=== PATIENT | female | born 1945 | race Caucasian/White ===

== ENCOUNTER → 2016-07-19 | Outpatient (CLI) | payer OTHER | END | disposition home or self-care (01) | LOC: C.CPL 11:34 | PROVIDERS: ATTEND Orthopaedic Surgery Sports Medicine | DX: S83.242A Other tear of medial meniscus, current injury, left knee, initial encounter (principal); X58.XXXA Exposure to other specified factors, initial encounter ==

== ENCOUNTER → 2017-01-10 | Outpatient (CLI) | payer OTHER ==
--- NOTE | 2017-01-10 13:29 | MAMMOGRAPHY REPORT ---
BILATERAL DIGITAL DIAGNOSTIC MAMMOGRAM TOMOSYNTHESIS WITH CAD: 01/10/2017 CLINICAL HISTORY: 71-year-old woman with a personal history of in situ carcinoma of the right breast diagnosed in 2006. She presents for bilateral mammography. No new lump, focal pain or nipple discha rge. TECHNIQUE: Bilateral breast tomosynthesis in addition to standard 2D mammography was performed. Curre nt study was also evaluated with a Computer Aided Detection (CAD) system. COMPARISON: Comparison is made to exams dated: 01/08/2016 mammogram, 01/06/2015 mammogram, 12/24/2013 m ammogram, 11/06/2012 mammogram, 11/03/2011 mammogram, and 10/25/2010 mammogram. BREAST COMPOSITION: There are scattered areas of fibroglandular density in both breasts. FINDINGS: There is expected architectural distortion in the lower outer posterior right breast, at th e site of prior lumpectomy. A linear scar marker overlies the lower outer quadrant of the right tee st. There are benign rim calcifications in the right breast, most numerous in the lower inner quadra nt. A few benign-appearing calcifications are also identified in the left breast. No suspicious mas s, architectural distortion or cluster of suspicious microcalcifications is seen. IMPRESSION: ACR BI-RADS CATEGORY 2: BENIGN There is no mammographic evidence of malignancy bilaterally. Expected postsurgical changes in the ri ght breast. Bilateral mammography is recommended in one year, and consider remaining a diagnostic pa tient given the personal history of right breast cancer and family history of breast cancer, in case any additional spot magnification views are needed. The patient has been verbally notified of the re sults. Approximately 10% of breast cancers are not detected with mammography. A negative mammographic report should not delay biopsy if a clinically suggestive mass is present. Rima Mistry M.D. ay/:01/10/2017 12:25:39 [employer] Technician: Bere ELMORE)(Annetta), [facility] letter sent: Normal 1/2 BI-RADS Code: ACR BI-RADS Category 2: Benign
== END | disposition home or self-care (01) ==
LOC: C.MAMM 10:44
PROVIDERS: ATTEND Internal Medicine
DX: Z85.3 Personal history of malignant neoplasm of breast (principal)

== ENCOUNTER → 2017-03-21 | Outpatient (CLI) | payer OTHER ==
[2017-03-21 10:51] LABS: BASO % 0.3 %; BASO ABS # 0.02 K/uL (0-0.2); COMPLETE YES; EOS % 1.1 %; HEMATOCRIT 40.9 % (37-47); IG% 0.2 %; LYMPH % 36.1 %; LYMPH ABS # 2.33 K/uL (1.2-3.4); MEAN CELL VOLUME 91.9 fL (80-100); MEAN CORPUSCULAR HEMOGLOBIN 31.5 pg (25-34); MEAN CORPUSCULAR HGB CONC 34.2 g/dl (32-36); MEAN PLATELET VOLUME 9.5 fL (7.4-10.4); MONO % 9.5 %; NEUT % 52.8 %; PLATELET COUNT 171 K/uL (130-400); RED BLOOD COUNT 4.45 M/uL (4.2-5.4); WHITE BLOOD COUNT 6.45 K/uL (4.8-10.8)
[2017-03-21 11:03] LABS: ALT/SGPT 24 U/L (12-78); BLOOD UREA NITROGEN 19 mg/dl (7-18); BUN/CREATININE RATIO 25.7 (10-20); CALCIUM 9.4 mg/dl (8.5-10.1); CARBON DIOXIDE 32 mmol/L (21-32); CHLORIDE 104 mmol/L (98-107); CHOLESTEROL 231 mg/dl (0-200); CREATININE 0.72 mg/dl (0.60-1.20); GLUCOSE 92 mg/dl (70-99); POTASSIUM 4.2 mmol/L (3.5-5.1); SODIUM 139 mmol/L (136-145); TRIGLYCERIDES 84 mg/dl (0-150); VERY LOW DENSITY LIPOPROT CALC 17 mg/dl
[2017-03-21 11:13] LABS: ALB/GLOB RATIO 1.1 (0.9-2); ALKALINE PHOSPHATASE 71 U/L (45-117); AST/SGOT 25 U/L (15-37); CHOLESTEROL/HDL RATIO 2.4; HDL CHOLESTEROL 98 mg/dl; LDL CHOLESTEROL CALCULATED 116 mg/dl
== END | disposition home or self-care (01) ==
LOC: C.LABBC 07:13
PROVIDERS: ATTEND Internal Medicine
DX: H81.10 Benign paroxysmal vertigo, unspecified ear (principal)

== ENCOUNTER → 2017-05-09 | Outpatient (CLI) | payer OTHER | END | disposition home or self-care (01) | LOC: C.LABBC 08:44 | PROVIDERS: ATTEND Internal Medicine | DX: E03.9 Hypothyroidism, unspecified (principal) ==

== ENCOUNTER → 2018-02-23 | Outpatient (CLI) | payer OTHER ==
[~2018-02-23] MED LIST: ATOR-22 PO; CHOL100010 PO; LEVO25TA5 PO; MECL-91 PO; MELO-83 PO; OMEG10007 PO
== END | disposition home or self-care (01) ==
LOC: C.LAB 13:29
PROVIDERS: ATTEND Physician Assistant Medical
DX: E78.5 Hyperlipidemia, unspecified (principal); E03.9 Hypothyroidism, unspecified

== ENCOUNTER → 2018-02-23 | Outpatient (CLI) | payer OTHER ==
--- NOTE | 2018-02-23 14:27 | DIAGNOSTIC IMAGING REPORT ---
CHEST 2 VIEWS ROUTINE CLINICAL HISTORY: 72 years-old Female presenting with preoperative assessment. TECHNIQUE: PA and lateral views of the chest were obtained. COMPARISON: None. FINDINGS: Cardiomediastinal silhouette normal. Lungs and pleural spaces clear. Osseous structures normal. Upper abdomen normal. IMPRESSION: 1. No acute cardiopulmonary disease. Electronically signed by: Yosef Kurtz M.D. 02/23/2018 2:26 PM Dictated Date/Time: 02/23/2018 2:24 PM
[2018-02-23 14:53] LABS: ALBUMIN 3.3 gm/dl (3.4-5.0); BLOOD UREA NITROGEN 21 mg/dl (7-18); CARBON DIOXIDE 29 mmol/L (21-32); CREATININE 0.75 mg/dl (0.60-1.20); GLUCOSE 133 mg/dl (70-99); POTASSIUM 3.9 mmol/L (3.5-5.1); SODIUM 139 mmol/L (136-145)
[2018-02-23 15:44] LABS: BASO % 0.2 %; BASO ABS # 0.01 K/uL (0-0.2); EOS % 0.5 %; EOS ABS # 0.03 K/uL (0-0.5); HEMATOCRIT 38.6 % (37-47); HEMOGLOBIN 12.9 g/dL (12.0-16.0); IG# 0.03 K/uL (0.00-0.02); LYMPH % 35.9 %; LYMPH ABS # 2.16 K/uL (1.2-3.4); MEAN CELL VOLUME 92.8 fL (80-100); MEAN CORPUSCULAR HGB CONC 33.4 g/dl (32-36); MEAN PLATELET VOLUME 9.5 fL (7.4-10.4); MONO % 6.5 %; MONO ABS # 0.39 K/uL (0.11-0.59); NEUT % 56.4 %; PLATELET COUNT 170 K/uL (130-400); RED CELL DISTRIBUTION WIDTH CV 13.7 % (11.5-14.5); RED CELL DISTRIBUTION WIDTH SD 46.3 fL (36.4-46.3); WHITE BLOOD COUNT 6.02 K/uL (4.8-10.8)
[2018-02-23 15:52] LABS: PTT PATIENT 27.1 SECONDS (21.0-31.0)
[2018-02-24 06:59] LABS: HEMOGLOBIN A1C 5.8 % (4.5-5.6)
== END | disposition home or self-care (01) ==
LOC: C.CPL 12:58
PROVIDERS: ATTEND Orthopaedic Surgery Sports Medicine
DX: Z01.810 Encounter for preprocedural cardiovascular examination (principal); Z01.811 Encounter for preprocedural respiratory examination; Z01.812 Encounter for preprocedural laboratory examination

== ENCOUNTER → 2018-02-26 | Outpatient (CLI) | payer OTHER ==
--- NOTE | 2018-02-26 10:59 | DIAGNOSTIC IMAGING REPORT ---
CAROTID DOPPLER NECK ART HISTORY: Carotid bruit. R09.89 Bruit of left carotid [id number] COMPARISON: None. TECHNIQUE: Real-time, grayscale, and color Doppler sonography of the carotid arteries was performed. Imaging reviewed in the transverse and longitudinal planes. All measurements were calculated based on NASCET criteria. FINDINGS: Antegrade flow is seen in the bilateral vertebral arteries. The brachial pressures are hemodynamically similar. The peak systolic velocity within the right ICA is 73. The right systolic ratio is 0.8. The peak systolic velocity within the left ICA is 66. The left systolic ratio is 0.8. IMPRESSION: No hemodynamically significant stenosis seen within the carotid arteries. The above report was generated using voice recognition software. It may contain grammatical, syntax or spelling errors. Electronically signed by: Juan Manuel Sanders M.D. 02/26/2018 10:58 AM Dictated Date/Time: 02/26/2018 10:57 AM
== END | disposition home or self-care (01) ==
LOC: C.ULTRBC 10:28
PROVIDERS: ATTEND Physician Assistant Medical
DX: R09.89 Other specified symptoms and signs involving the circulatory and respiratory systems (principal)

== ENCOUNTER 2025-04-16 08:12 | Observation (INO) ==
--- NOTE | 2025-03-18 09:20 | PAT Medication Instructions ---
Medication Instructions Date of Service March 18, 2025 Home Medications Medication Instructions Recorded escitalopram oxalate 10 mg tablet 10 mg PO HS #90 tabs 05/23/24 levothyroxine 25 mcg tablet 25 mcg PO QAM #90 tabs 05/23/24 rivaroxaban 20 mg tablet (Xarelto) 20 mg PO HS #90 tabs 07/22/24 atorvastatin 40 mg tablet 40 mg PO HS #90 tabs 08/02/24 ezetimibe 10 mg tablet (Zetia) 10 mg PO HS #90 tabs 08/02/24 acetaminophen 650 mg tablet,extended release (Tylenol 8 Hour) 650 mg PO BID cholecalciferol (vitamin D3) 50 mcg (2,000 unit) capsule 50 mcg PO DAILY coenzyme Q10 100 mg capsule (Co Q-10) 50 mg PO DAILY escitalopram oxalate 10 mg tablet 10 mg PO HS levothyroxine 25 mcg tablet 25 mcg PO QAM rivaroxaban 20 mg tablet (Xarelto) 20 mg PO HS atorvastatin 40 mg tablet 40 mg PO HS ezetimibe 10 mg tablet (Zetia) 10 mg PO HS alendronate 70 mg tablet (Fosamax) 70 mg PO WK afhqapue-bcc-umcuec 5 mg-zeaxanth 1 mg-bilberry 7.5 mg-herbal capsule (Macular Health Formula) 1 cap PO DAILY sulfamethoxazole 800 mg-trimethoprim 160 mg tablet 1 tab PO BID Continue as directed sulfamethoxazole 800 mg-trimethoprim 160 mg tablet 1 tab PO BID ASK your prescriber and surgeon rivaroxaban 20 mg tablet (Xarelto) 20 mg PO HS (From anesthesia perspective, rivaroxaban/Xarelto needs to be stopped 72 hours/3 days before surgery. Please check if okay with doctor that prescribes this to you) STOP taking 2 weeks before surgery (or as soon as possible if surgery is within 2 weeks) coenzyme Q10 100 mg capsule (Co Q-10) 50 mg PO DAILY gwqmnxfa-[id number] 5 mg-zeaxanth 1 mg-bilberry 7.5 mg-herbal capsule (Macular Health Formula) 1 cap PO DAILY DO NOT take the morning of surgery cholecalciferol (vitamin D3) 50 mcg (2,000 unit) capsule 50 mcg PO DAILY alendronate 70 mg tablet (Fosamax) 70 mg PO WK Take morning of surgery With a small sip of water, OTHERWISE NOTHING TO EAT OR DRINK AFTER MIDNIGHT: acetaminophen 650 mg tablet,extended release (Tylenol 8 Hour) 650 mg PO BID levothyroxine 25 mcg tablet 25 mcg PO QAM Take evening before surgery acetaminophen 650 mg tablet,extended release (Tylenol 8 Hour) 650 mg PO BID escitalopram oxalate 10 mg tablet 10 mg PO HS atorvastatin 40 mg tablet 40 mg PO HS ezetimibe 10 mg tablet (Zetia) 10 mg PO HS Other Notes If you have any questions please call us at [phone] or [phone] or [phone] or [phone]
--- NOTE | 2025-03-19 12:56 | Anesthesiology Consultation ---
Date of Service March 19, 2025 Assessment & Plan (1) Encounter for pre-operative examination: - Check BSG DOS - Infectious disease screening: Per assessment on 03/19/25- No known recent infectious disease contacts or current infectious disease symptoms. - Outpatient joint assessment: Pt currently scheduled for inpatient pathway. If surgeon requests review for outpatient joint pathway, patient is not recommended candidate for outpatient joint program from anesthesia standpoint based on available information. - Xarelto instructions: patient made aware that for neuraxial anesthesia, Xarelto/Rivaroxaban needs to be held 72 hours prior to surgery. Patient voiced understanding/will check if okay with prescriber. - [facility] visit (03/19/25): " Patient is planning to leave for [place] on 03/22/2025 and right TKA scheduled for 04/16/[address] Tipton. She has no new complaints today.." "Wound is improved; nearly healed. Topical Xylocaine applied to the wound. With the patient's permission, the wound was debrided of eschar using a curette. No bleeding occurred, and wound was nearly healed underneath. Patient tolerated the procedure well. This represents a nonexcisional debridement of less than 20 cm; 1.10 cm total. Wound will be dressed with plain PolyMem today, and patient will be fitted for compression stocking. She will transition into this in preparation for her trip to [place] on 03/22/2025.. Evidence of chronic venous stasis changes with lymphedema. Patient did undergo venous reflux study on 03/06/2025. Right GSV endovenous ablation could be considered. She is scheduled for consultation with Sonia Arreola PA-C on 05/29/2025. Patient fitted for compression stockings today by orthotics." - Acceptable risk for surgery pending surgeon-ordered cardiology ([facility], appt 04/09) and PCP ([facility], appt 04/10) preop evaluations. Chart Review Chart Review: Patient NOT seen in Pre Admission Testing History Surgery Operation Date: 04/16/25 12:35 Proposed Procedures p Right Total Knee Arthroplasty - Ryder Tipton MD Height/Weight Height: 5 ft 7 in Weight: 81.4 kg Allergies Allergy/AdvReac Type Severity Reaction Status Date / Time Latex, Natural Rubber Allergy Severe Rash Verified 03/19/25 15:00 amoxicillin [From Augmentin] Allergy Cold sores Verified 03/19/25 15:00 clavulanic acid Allergy Cold sores Verified 03/19/25 15:00 [From Augmentin] animal dander AdvReac Mild Verified 03/19/25 15:00 oxycodone AdvReac Mild Hives Verified 03/19/25 15:00 adhesive tape AdvReac Unknown Rash Verified 03/19/25 15:00 celecoxib [From Celebrex] AdvReac Unknown See comment Unverified 03/19/25 15:00 Medications Home Medications Medication Instructions Recorded Confirmed Last Taken acetaminophen 650 mg 650 mg PO BID 07/23/20 03/19/25 12/13/24 tablet,extended release (Tylenol 8 Hour) cholecalciferol (vitamin D3) 50 50 mcg PO DAILY 07/23/20 03/19/25 12/12/24 mcg (2,000 unit) capsule coenzyme Q10 100 mg capsule (Co 50 mg PO DAILY 05/15/23 03/19/25 12/12/24 Q-10) escitalopram oxalate 10 mg tablet 10 mg PO HS #90 tabs 05/23/24 03/19/25 12/12/24 levothyroxine 25 mcg tablet 25 mcg PO QAM #90 tabs 05/23/24 03/19/25 12/13/24 rivaroxaban 20 mg tablet (Xarelto) 20 mg PO HS #90 tabs 07/22/24 03/19/25 atorvastatin 40 mg tablet 40 mg PO HS #90 tabs 08/02/24 03/19/25 12/12/24 ezetimibe 10 mg tablet (Zetia) 10 mg PO HS #90 tabs 08/02/24 03/19/25 12/12/24 alendronate 70 mg tablet (Fosamax) 70 mg PO WK 12/13/24 03/19/25 12/12/24 etruqcfu-ykz-pcktmv 5 mg-zeaxanth 1 cap PO DAILY 12/13/24 03/19/25 12/12/24 1 mg-bilberry 7.5 mg-herbal capsule ([employer] Formula) Past Medical History Medical History Anxiety Arthritis of right shoulder region Atherosclerosis of aorta Atrial fibrillation Taking Xarelto Previously on beta yocasta, d/c'd due to nausea Follows with [facility] Cancer Right breast cancer (2006) s/p lumpectomy/tamoxifen Cervicalgia Chronic back pain Chronic venous insufficiency History of COVID-19 (2022) Symptoms resolved History of hypotension Chronic History of kidney stones Passed on own Hyperlipidemia Hypothyroidism Lumbar spinal stenosis Mitral regurgitation Follows with [facility] Osteoarthritis of left knee Osteopenia Traumatic open wound of right lower leg with delayed healing RLE "hematoma", healing Following w/[facility] Type 2 diabetes mellitus Per records Patient denies Exercise / Class Metabolic Activity III < 4 Walking/Shop/Light housework Past Family History Family History Mother Family history of malignant neoplasm of breast Diabetes Brother Diabetes Depression Father Cardiac disorder Myocardial infarction Grandmother Colon cancer Past Surgical History Surgical History H/O wisdom tooth extraction History of arthroscopy Left knee History of colonoscopy History of left knee replacement History of Mohs micrographic surgery for skin cancer History of open reduction and internal fixation (ORIF) procedure Right ankle History of tonsillectomy Hx of lumpectomy Right Hx of surgical procedure Platelets injected into left ankle Past Anesthesia History No Hx of Anesthesia Complications and No Family Hx of Anesthesia Complications History of PONV No Hx of PONV and Hx of Motion Sickness (Remote hx) Social History Smoking Status: Never smoker Do You Dip or Chew Tobacco: No Hx Alcohol Use: Yes Alcohol type: wine alcohol intake frequency: 0-2 drinks per day (1 glass wine/day) Hx Substance Use: No substance use type: does not use Review of Systems Patient denies chest pain, shortness of breath, fever, chills, cough, wheezing, palpitations. Physical Exam Vital Signs BP 91/60 > Chronic hypotension per patient, asymptomatic P 90 TEMP 98.3 SP02 95%RA RESP 16 Physical Full cervical extension range of motion. Full TMJ range of motion. TMD > 3.5 finger breaths Mallampati Score III Dentition: intact, several crowns Lungs: clear throughout to auscultation Cardiac: regular rate, irregularly irregular rhythm Spine: normal Carotid arteries: faint left carotid bruit Extremities: RLE compression stocking, LLE boot Lab Results Anesthesia Preop Results Results Anesthesia Widget: WBC 6.56 K/ul (4.8-10.8) 03/19/25 Hgb 13.1 g/dl (12.0-16.0) 03/19/25 Hct 39.2 % (37.0-47.0) 03/19/25 Plt 166 K/uL (130-400) 03/19/25 Na 138 mmol/L (136-145) 03/19/25 K 4.2 mmol/L (3.5-5.1) 03/19/25 Cl 103 mmol/L (98-107) 03/19/25 CO2 30 mmol/L (21-32) 03/19/25 BUN 27 mg/dl (6-23) H 03/19/25 Creat 0.89 mg/dl (0.6-1.2) 03/19/25 Glucose Level 151 mg/dl (70-99(Fasting)) H 03/19/25 PT 11.0 Seconds (9.0-12.0) 03/19/25 PTT 38 Seconds (21-31) H 03/19/25 INR 1.0 (0.9-1.1) 03/19/25 Urine Color Yellow 03/19/25 Urine Appearance Clear (Clear) 03/19/25 Urine pH 5.5 (4.5-7.5) 03/19/25 Urine Specific Gilbert 1.029 (1.000-1.030) 03/19/25 Urine Protein Negative (Negative) 03/19/25 Urine Glucose (UA) Negative (Negative) 03/19/25 Urine Ketones Trace (Negative) H 03/19/25 Urine Blood Negative (Negative) 03/19/25 Urine Nitrite Negative (Negative) 03/19/25 Urine Bilirubin Negative (Negative) 03/19/25 Urine Urobilinogen Negative (Negative) 03/19/25 Urine Leukocyte Esterase Negative (Negative) 03/19/25 Blood Type A Positive 03/19/25 Antibody Screen NEGATIVE 03/19/25 Testing Laboratory Results Elevated PTT- patient taking Xarelto (will be holding preoperatively) HGBA1C (07/01/24): 6.7% Electrocardiogram Date: 03/19/25 A. fib at 76bpm. Chest X-Ray Date: 03/19/25 Findings: + NAD Echocardiogram Date: 11/10/23 EF 65-70%. Mild LAD. Mild AR. No RWMA. Diastolic function indeterminate. Other Testing Carotid doppler Date: 05/02/2022 Indication: Left carotid bruit <50% R/L ICA stenosis. B/L vertebral ateries with antegrade flow.
--- NOTE | 2025-04-12 10:57 | History & Physical Report ---
Date of Service April 12, 2025 History of Present Illness Primary Care Provider: Dinorah Rosenthal DO Patient denies headaches, sweats, fevers, chills, double vision, blurred vision, cough, sore throat, dysphagia, chest pain, sob, wheezing, n/v/d/c, numbness, tingling, fatigue, urinary symptoms, mood disorders. ROS positive for [] Allergies Allergy/AdvReac Type Severity Reaction Status Date / Time Latex, Natural Rubber Allergy Severe Rash Verified 04/11/25 08:56 amoxicillin [From Augmentin] Allergy Cold sores Verified 04/11/25 08:56 clavulanic acid Allergy Cold sores Verified 04/11/25 08:56 [From Augmentin] animal dander AdvReac Mild Verified 04/11/25 08:56 oxycodone AdvReac Mild Hives Verified 04/11/25 08:56 adhesive tape AdvReac Unknown Rash Verified 04/11/25 08:56 celecoxib [From Celebrex] AdvReac Unknown See comment Unverified 04/11/25 08:56 Home Medications Medication Instructions Recorded Confirmed Type acetaminophen 650 mg 650 mg PO BID 07/23/20 04/11/25 History tablet,extended release (Tylenol 8 Hour) cholecalciferol (vitamin D3) 50 50 mcg PO DAILY 07/23/20 04/11/25 History mcg (2,000 unit) capsule coenzyme Q10 100 mg capsule (Co 50 mg PO DAILY 05/15/23 04/11/25 History Q-10) escitalopram oxalate 10 mg tablet 10 mg PO HS #90 tabs 05/23/24 04/11/25 Rx levothyroxine 25 mcg tablet 25 mcg PO QAM #90 tabs 05/23/24 04/11/25 Rx rivaroxaban 20 mg tablet (Xarelto) 20 mg PO HS #90 tabs 07/22/24 04/11/25 Rx atorvastatin 40 mg tablet 40 mg PO HS #90 tabs 08/02/24 04/11/25 Rx ezetimibe 10 mg tablet (Zetia) 10 mg PO HS #90 tabs 08/02/24 04/11/25 Rx alendronate 70 mg tablet (Fosamax) 70 mg PO WK 12/13/24 04/11/25 History boixtinc-exd-jreldi 5 mg-zeaxanth 1 cap PO DAILY 12/13/24 04/11/25 History 1 mg-bilberry 7.5 mg-herbal capsule (Macular Health Formula) Past Med/Surg History Problem List (Updated 04/11/25 @ 09:33 by YANIRA Kohler) Chronic venous insufficiency of lower extremity (Chronic) Traumatic open wound of left lower leg with delayed healing (Acute) Type 2 diabetes mellitus Abnormal finding present on diagnostic imaging of uterus Insomnia Osteopenia after menopause Mitral regurgitation Atrial fibrillation Cervical spondylosis Calcification of abdominal aorta (Chronic) Atherosclerosis of aorta (Chronic) History of cancer of right breast Vitamin D deficiency Continue home vitamin D supplement. Hypothyroid Continue home levothyroxine 25 mcg PO daily Hyperlipemia Continue home statin Encounter for pre-operative examination Medical History Type 2 diabetes mellitus Traumatic open wound of right lower leg with delayed healing Osteopenia Chronic back pain Atherosclerosis of aorta History of COVID-19 (2022) Mitral regurgitation Chronic venous insufficiency Arthritis of right shoulder region Lumbar spinal stenosis Osteoarthritis of left knee Anxiety Atrial fibrillation History of kidney stones Cervicalgia Hypothyroidism Cancer Hyperlipidemia History of hypotension Surgical History History of left knee replacement H/O wisdom tooth extraction History of Mohs micrographic surgery for skin cancer Hx of surgical procedure Hx of lumpectomy History of open reduction and internal fixation (ORIF) procedure History of arthroscopy History of colonoscopy History of tonsillectomy Family History Mother Family history of malignant neoplasm of breast Diabetes Brother Diabetes Depression Father Cardiac disorder Myocardial infarction Grandmother Colon cancer Social History Smoking Status: Never smoker Second Hand Exposure: No; Do You Dip or Chew Tobacco: No; Hx Alcohol Use: Yes Alcohol type: wine Alcohol Intake Frequency: 2-3 x/Week Hx Substance Use: No Preferred Language: Cymro Communication Ability: Effective Visual Impairment: Limited Hearing Ability: Normal 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
--- NOTE | 2025-04-12 11:08 | History & Physical Report ---
Date of Service April 12, 2025 Assessment & Plan (1) Osteoarthritis of right knee: Plan: End-stage osteoarthritis right knee presents for right knee replacement. Patient presents for [employer] knee replacement with MRI generated PSI guide. Osteoarthritis type: primary Qualified Code(s): M17.11 - Unilateral primary osteoarthritis, right knee (2) Chronic venous insufficiency of lower extremity: History of Present Illness Chief Complaint: Chronic right knee pain due to osteoarthritis Primary Care Provider: Dinorah Rosenthal DO 79-year-old female with chronic right knee pain failed conservative management with recurrent pain and swelling not relieved by injection therapy. Patient denies headaches, sweats, fevers, chills, double vision, blurred vision, cough, sore throat, dysphagia, chest pain, sob, wheezing, n/v/d/c, numbness, tingling, fatigue, urinary symptoms, mood disorders. ROS positive for atrial fib irregular heartbeat, some bruising related to Xarelto, osteopenia bones, lower back pain occasionally. Allergies Allergy/AdvReac Type Severity Reaction Status Date / Time Latex, Natural Rubber Allergy Severe Rash Verified 04/11/25 08:56 amoxicillin [From Augmentin] Allergy Cold sores Verified 04/11/25 08:56 clavulanic acid Allergy Cold sores Verified 04/11/25 08:56 [From Augmentin] animal dander AdvReac Mild Verified 04/11/25 08:56 oxycodone AdvReac Mild Hives Verified 04/11/25 08:56 adhesive tape AdvReac Unknown Rash Verified 04/11/25 08:56 celecoxib [From Celebrex] AdvReac Unknown See comment Unverified 04/11/25 08:56 Home Medications Medication Instructions Recorded Confirmed Type acetaminophen 650 mg 650 mg PO BID 07/23/20 04/11/25 History tablet,extended release (Tylenol 8 Hour) cholecalciferol (vitamin D3) 50 50 mcg PO DAILY 07/23/20 04/11/25 History mcg (2,000 unit) capsule coenzyme Q10 100 mg capsule (Co 50 mg PO DAILY 05/15/23 04/11/25 History Q-10) escitalopram oxalate 10 mg tablet 10 mg PO HS #90 tabs 05/23/24 04/11/25 Rx levothyroxine 25 mcg tablet 25 mcg PO QAM #90 tabs 05/23/24 04/11/25 Rx rivaroxaban 20 mg tablet (Xarelto) 20 mg PO HS #90 tabs 07/22/24 04/11/25 Rx atorvastatin 40 mg tablet 40 mg PO HS #90 tabs 08/02/24 04/11/25 Rx ezetimibe 10 mg tablet (Zetia) 10 mg PO HS #90 tabs 08/02/24 04/11/25 Rx alendronate 70 mg tablet (Fosamax) 70 mg PO WK 12/13/24 04/11/25 History bjvprert-qky-mfvghc 5 mg-zeaxanth 1 cap PO DAILY 12/13/24 04/11/25 History 1 mg-bilberry 7.5 mg-herbal capsule ([employer] Formula) Past Med/Surg History Problem List (Updated 04/12/25 @ 11:07 by Ryder Tipton MD) Osteoarthritis of right knee Chronic venous insufficiency of lower extremity (Chronic) Traumatic open wound of left lower leg with delayed healing (Acute) Type 2 diabetes mellitus Abnormal finding present on diagnostic imaging of uterus Insomnia Osteopenia after menopause Mitral regurgitation Atrial fibrillation Cervical spondylosis Calcification of abdominal aorta (Chronic) Atherosclerosis of aorta (Chronic) History of cancer of right breast Vitamin D deficiency Continue home vitamin D supplement. Hypothyroid Continue home levothyroxine 25 mcg PO daily Hyperlipemia Continue home statin Encounter for pre-operative examination Medical History Type 2 diabetes mellitus Per records Patient denies Traumatic open wound of right lower leg with delayed healing RLE "hematoma", healing Following [facility] Osteopenia Chronic back pain Atherosclerosis of aorta History of COVID-19 (2022) Symptoms resolved Mitral regurgitation Follows with [facility] Chronic venous insufficiency Arthritis of right shoulder region Lumbar spinal stenosis Osteoarthritis of left knee Anxiety Atrial fibrillation Taking Xarelto Previously on beta yocasta, d/c'd due to nausea Follows with [facility] History of kidney stones Passed on own Cervicalgia Hypothyroidism Cancer Right breast cancer (2006) s/p lumpectomy/tamoxifen Hyperlipidemia History of hypotension Chronic Surgical History History of left knee replacement H/O wisdom tooth extraction History of Mohs micrographic surgery for skin cancer Hx of surgical procedure Platelets injected into left ankle Hx of lumpectomy Right History of open reduction and internal fixation (ORIF) procedure Right ankle History of arthroscopy Left knee History of colonoscopy History of tonsillectomy Family History Mother Family history of malignant neoplasm of breast Diabetes Brother Diabetes Depression Father Cardiac disorder Myocardial infarction Grandmother Colon cancer Social History Smoking Status: Never smoker Second Hand Exposure: No; Do You Dip or Chew Tobacco: No; Hx Alcohol Use: Yes Alcohol type: wine Alcohol Intake Frequency: 2-3 x/Week Hx Substance Use: No Preferred Language: Kyrgyz Communication Ability: Effective Visual Impairment: Limited Hearing Ability: Normal Contact Officer Required: No Beliefs That Will Affect Care: None marital status: Current Living Situation: Alone current occupational status: retired Feels Safe at Home: Yes Childhood Exposure to Second-Hand Smoke: Yes Diet: regular caffeine: Yes (occasionally) Dental Care, Regularly: Yes Physical Activity Frequency: Daily Seatbelt Use: always Sunscreen Use: Yes Assistive Devices: Glasses Review of Systems All systems reviewed & are unremarkable except as noted in HPI & below Physical Exam Constitutional: WD/WN, vitals as above Respiratory: normal respiratory effort; no respiratory distress Cardiovascular: Rate/Rhythm: regular rate and regular rhythm Musculoskeletal: Bilateral knee effusions with right greater than left with valgus knee on right neutral alignment on left moderate swelling right leg with crepitation patellofemoral and lateral compartment 0 through 125 degrees range of motion normal strength and chronic venous stasis dermatitis bilaterally good arterial circulation. Skin: no rashes, warm and dry Neurologic: normal touch/pain/proprioception Psychiatric: A+Ox3, euthymic affect Results & Data Diagnostic Findings Advanced right knee osteoarthritis primarily lateral compartment.
[~2025-04-16 08:12] MED LIST changes: -ATOR-22 PO; +BUPIVACAINE 0.25% PF 30 ML VIAL ONE; +BUPIVACAINE 0.5 % 5 MG/1 ML PF 10ML VIAL ONE; -CHOL100010 PO; +DEXAMETHASONE SOD INJ 4 MG/ML VIAL ONE; +EPINEPHrine INJ 1 MG/ML AMP ONE; -LEVO25TA5 PO; -MECL-91 PO; -MELO-83 PO; +MIDAZOLAM HCL 1 MG/ML 2ML VIAL ONE; -OMEG10007 PO; +PROPOFOL IV EMULSION 10 MG/ML 100 ML VIAL IV ONE
[2025-04-16] MEDS: ACETAMINOPHEN 500 MG TAB PO SCH ×2 (08:57→15:47)
[2025-04-16] MEDS: LR 500ML BOLUS, THEN 15ML/HR IV SCH (08:57)
[2025-04-16] MEDS: LR 60ML/HR IV SCH (08:58)
[2025-04-16] MEDS: dexAMETHasone**PF** 10 MG/ML VIAL IV SCH (08:59)
[2025-04-16] MEDS: GABAPENTIN 300 MG CAP PO SCH (08:59)
[2025-04-16] MEDS: FAMOTIDINE 20 MG TAB PO SCH (08:59)
[2025-04-16] MEDS: METOCLOPRAMIDE HCL 10 MG TABLET PO SCH (09:01)
[2025-04-16] MEDS ORDERED: PROMETHAZINE HCL 6.25 MG in SODIUM CHLORIDE 0.9% 50 ML IV PRN (09:26)
[2025-04-16] MEDS ORDERED: ONDANSETRON INJ 2 MG/ML 2 ML VIAL IV PRN ×2 (09:26→15:06)
[2025-04-16] MEDS ORDERED: ATROPINE SULFATE 0.1 MG/ML 10ML SYR IV PRN (09:26)
--- NOTE | 2025-04-16 10:08 | History & Physical Bridge Note ---
Date of Service April 16, 2025 History & Physical Bridge Note I have examined the patient, reviewed the History & Physical and in the interval since the performance of the History & Physical I have noted the following changes of clinical significance: no changes noted
[2025-04-16] MEDS: TRANEXAMIC ACID 1,000 MG **IV Pre-op IV SCH (10:12)
[2025-04-16] MEDS ORDERED: ONDANSETRON INJ 2 MG/ML 2 ML VIAL ONE (10:54)
[2025-04-16] MEDS ORDERED: LIDOCAINE 2% 2 ML VIAL/AMP(20MG/ML) INFIL ONE (10:54)
[2025-04-16] MEDS: ORTHO JOINT ANESTHETIC ONE (11:10)
[2025-04-16] MEDS: ROPIVACAINE 0.5% HCL/PF 246 MG, Ketorolac (*for OR use only*) 30 MG in SODIUM CHLORIDE ... INFIL SCH (12:14)
--- NOTE | 2025-04-16 13:00 | Operative Report ---
Post Operative Report Pre & Post Diagnosis Operation Date: 04/16/25 09:40 Pre-Op Diagnosis: Osteoarthritis of right knee Post-Op Diagnosis: Osteoarthritis of right knee I identified the patient and participated in the time-out.: Yes Procedure Operation Date: 04/16/25 09:40 Actual Procedures p Right Total Knee Arthroplasty(Right) - Ryder Tipton MD Surgeon Ryder Tipton MD Organizational Development Manager Leoncio MCFADDEN Estimated Blood Loss 5 Findings Consistent with Post-Op Diagnosis Specimens Bone cuts Drains 2 Hemovac Anesthesia Type MAC Spinal Regional Complications none Disposition Disposition: Recovery Room Indications 79-year-old female with chronic progressive osteoarthritis right knee now [id number] lateral compartment. Failed conservative management. History of success left knee replacement in the past. Description of Procedure The patient was taken to the operating room and anesthetized under spinal MAC regional block. Patient was placed supine on the the operating table. A pneumatic tourniquet was placed about the right upper thigh. The knee exam demonstrated valgus knee with moderately large knee effusion and patellofemoral crepitation and no instability and no pseudolaxity. The lower leg down to ankle had chronic venous stasis pigmentation changes but no open sores noted at all. The incisional area was totally clean and normal-appearing skin. The right leg was elevated exsanguinated with Esmarch bandage and the pneumatic tourniquet was raised to 325 millimeters mercury. A longitudinal incision was made across the anterior knee. Skin flaps were elevated. An incision was made into the medial retinaculum and extended up into the mid third of the quadriceps tendon and extended down to the tibial tubercle. Intra-articular findings demonstrated tricompartmental osteoarthritis. There was grade 3 close to grade 4 thinning on the medial femoral condyle and the lateral femoral condyle was clearly grade 4 [id number] osteoarthritis between the tibial plateau and the lateral femur. The cruciate ligaments were intact. Patella has grade III chondromalacia medial and lateral facets and trochlear groove. The knee was exposed by excising cruciate ligaments and menisci. The infrapatellar fat pad was resected. The fat pad over the anterior femur at the upper aspect of the articular surface was resected for placement of the component in that area. A subperiosteal peel lateral release was performed around the patella. The Ortiz [employer] Nephew journey 2.0 total knee arthroplasty system was utilized for the procedure. The custom femoral cutting guide was pinned in position. The distal femoral cut was made. The size 5, 5 in 1 cutting block was placed. The anterior posterior and chamfer cuts were made. The knee was extended and a free hand cut technique was performed to the patella. The patella width was measured and the width was reproduced using a 35 symmetrical patella component. The e xcess lateral facet was beveled off to prevent any impingement. 3 drill holes are made for the patella component pegs. The tibia was then subluxed. The custom tibial cutting block was pinned in position and the proximal tibial cut was made with the oscillating saw. Flexion and extension gaps were balanced. Lateral capsular and lateral IT band off of the tibia releases were required. The size 3 tibial trial was externally rotated in line with the tibial tubercle and pinned in position. The punch for the stem was used. The femoral trial was inserted and centered the notch cutting devices were used and the collet was placed. Tibial trials were used for the insert. The size 15 trial gave balanced ligaments through full range of motion. Patella tracking was assessed with range of motion. The patella tracked with slight lateral tracking with lateral tilt so I did do an extra-articular lateral release preserving the geniculate vessels and the synovium. Patella tracks centrally then. The trials were removed. The Orthomix anesthetic cocktail was injected per protocol. The cut bone surfaces and soft tissue were copiously irrigated with pulsatile lavage saline solution. The final components were cemented with Refobacin cement. The final components were Ortiz [employer] Nephew journey 2.0 size 5 right posterior stabilized femoral component, size 3 right tibial component, 15 mm posterior stabilized tibial polyethylene and a 35 mm symmetrical polyethylene patella. Xperience irrigation was placed over metal tray prior to polyethyle insertion. After the cement cured, the knee was then copiously irrigated with pulsatile lavage Xperience solution. 2 drains were brought out laterally connected to Hemovac. The quadriceps tendon and medial retinaculum were closed with interrupted [id number]-eg-[id number] sutures using #2 FiberWire in the area of the medial retinaculum and distal quadriceps tendon. Additional sutures were placed at the apex of the quadriceps tendon split proximally and at the level of the tibial polyethylene. A 0 strata fix running locking suture was placed from the superior quadriceps split down to the medial retinaculum inferior pole of the patella level. Below that level interrupted number#1 Vicryl sutures were used to repair the medial retinaculum. The knee was taken through full range of motion and repair was secure. Knee range of motion was 0 through 135 degrees. the subcutaneous tissues were closed with 2-0 Vicryl sutures. The skin was closed with 3 oh STRATAFIX and Prineo glue system. A Silverlon dressing was applied. The tourniquet was let down and the patient had good capillary refill to the extremity. The patient tolerated the procedure well. My physician butcher assistant BOGDAN Cobb participated as executive chef assistant and was integral part in all aspects of the procedure including prepping, draping, leg positioning, soft tissue retraction, instrument management and assisted in the closure , Silverlon application and will participate in postoperative care the patient. Im ordering collagen sheets as a primary dressing and bordered super absorbent for secondary dressings for the wound resulting from this surgery. Collagen is being utilized to encourage the growth of blood vessels and granulation tissue. The collagen will also speed up the wound healing process, increase skin tensile strength at the surgery site and lessen the chance of a wound dehiscence, help prevent infection, and reduce the appearance of scarring. The silicone secondary dressings will protect the wound and help keep it clean and minimize that chances for infection. I believe that this treatment protocol is medically necessary to help facilitate the best outcome possible for my patient. I attest to the content of the Intraoperative Record and any orders documented therein. Any exceptions are noted below.
--- NOTE | 2025-04-16 13:02 | Anesthesiology Progress Note ---
Date of Service April 16, 2025 Anesthesia Post Procedure Vital Signs Vital Signs: Temp Pulse Resp BP Pulse Ox O2 Del Method 04/16/25 08:41 36.6 C 81 18 151/78 H 97 Room Air Pain Intensity Back: Pain Intensity: 2 Transfer of Care Handoff Completed per policy Notes Mental Status: alert / awake / arousable Patient Amnestic to Procedure: Yes Nausea / Vomiting: adequately controlled Pain: adequately controlled Airway Patency, RR, SpO2: stable & adequate BP & HR: stable & adequate Hydration State: stable & adequate Neuraxial Anesthesia: was administered and sensory block is resolving Anesthetic Complications: no major complications apparent and Pt Satisfied with anesthetic care
--- NOTE | 2025-04-16 13:26 | XRay Report ---
XR knee RT 1 or 2V routine CLINICAL HISTORY: Surgical Post Op COMPARISON: 06/04/2024 FINDINGS: Right knee prosthesis shows no hardware complication. There is expected soft tissue gas. P ostoperative drain is present. IMPRESSION: Unremarkable postoperative exam. ACT 112: Negative or not required by law. Electronically signed by: Ronak Wing M.D. 04/16/2025 1:25 PM
--- NOTE | 2025-04-16 14:58 | Hospitalist Consultation ---
Date of Consultation April 16, 2025 Assessment & Plan (1) Osteoarthritis of right knee: (2) Atrial fibrillation: (3) Hypothyroid: (4) Hyperlipemia: (5) Type 2 diabetes mellitus: Plan This is an 79 year old female with past medical history of A fib, hyperlipidemia, breast cancer who presented to the hospital for an elective right total knee repair with Dr. Tipton on 04/16/2025. #OA of right knee s/p right total knee repair w/ Dr. Tipton 04/16 DVT prophylaxis, PT/OT, pain management, and Diet per primary team. Patient does report eye irritation in her left eye following surgery. - trial erythromycin ointment to see if this helps improve symptoms. Did not appear red Anticipate dc home 04/17. #A fib Per pt was in A fib prior to surgery this AM - asymptomatic resume Xarelto when able. Not on any rate controlling medications at this time. #Hypothyroidism Most recent TSH 06/2024 was WNL - recheck in AM Continue Levothyroxine #HLD - continue statin + zetia #Anxiety/depression - continue Lexapro #T2 DM Currently diet controlled. A1c 03/2025: 6.3% Continue to follow up w/ PCP for continued monitoring. DVT prophylaxis: per primary team, resume Xarelto when able. Code: full Consultation discussed w/ Dr. Wild at time of encounter. History of Present Illness Reason for Consultation: right total knee Attending Physician: Ryder Tipton MD History of Present Illness This is an 79 year old female with past medical history of A fib, hyperlipidemia, breast cancer who presented to the hospital for an elective right total knee repair with Dr. Tipton on 04/16/2025. Nano was seen & examined this afternoon. She reports to be feeling well after surgery. Denies any pain. Denies any N/V, abdominal pain, chest pain, or shortness of breath. She tells me she plans to return home tomorrow. States [place] and was walking ~ 7k steps a day. She is hoping that will help her recovery from her surgery. States she had her left knee done about [address] Tipton. Allergies Allergy/AdvReac Type Severity Reaction Status Date / Time Latex, Natural Rubber Allergy Severe Rash Verified 04/16/25 08:36 amoxicillin [From Augmentin] Allergy Cold sores Verified 04/16/25 08:36 clavulanic acid Allergy Cold sores Verified 04/16/25 08:36 [From Augmentin] animal dander AdvReac Mild Watery Eye Verified 04/16/25 08:36 oxycodone AdvReac Mild Hives Verified 04/16/25 08:36 adhesive tape AdvReac Unknown Rash Verified 04/16/25 08:36 celecoxib [From Celebrex] AdvReac Unknown See comment Unverified 04/16/25 08:36 Home Medications Medication Instructions Recorded Confirmed Type acetaminophen 650 mg 650 mg PO BID 07/23/20 04/16/25 History tablet,extended release (Tylenol 8 Hour) cholecalciferol (vitamin D3) 50 50 mcg PO DAILY 07/23/20 04/16/25 History mcg (2,000 unit) capsule coenzyme Q10 100 mg capsule (Co 50 mg PO DAILY 05/15/23 04/16/25 History Q-10) levothyroxine 25 mcg tablet 25 mcg PO QAM #90 tabs 05/23/24 04/16/25 Rx rivaroxaban 20 mg tablet (Xarelto) 20 mg PO HS #90 tabs 07/22/24 04/16/25 Rx atorvastatin 40 mg tablet 40 mg PO HS #90 tabs 08/02/24 04/16/25 Rx ezetimibe 10 mg tablet (Zetia) 10 mg PO HS #90 tabs 08/02/24 04/16/25 Rx alendronate 70 mg tablet (Fosamax) 70 mg PO WK 12/13/24 04/16/25 History ccmhmlbi-jqk-ipcqfm 5 mg-zeaxanth 1 cap PO DAILY 12/13/24 04/16/25 History 1 mg-bilberry 7.5 mg-herbal capsule (Macular Health Formula) acetaminophen 500 mg tablet 1,000 mg (2 x 500 mg) PO Q8H #90 04/16/25 Rx (Tylenol Extra Strength) tabs ascorbic acid 100 mg-zinc sulfate 1 tab PO DAILY 04/16/25 04/16/25 History 200 mg tablet cefadroxil 500 mg capsule 500 mg PO Q12H #28 caps 04/16/25 Rx escitalopram oxalate 10 mg tablet 10 mg PO HS 04/16/25 04/16/25 History (Lexapro) hydromorphone 2 mg tablet 2 mg PO Q4H PRN pain #20 tabs 04/16/25 Rx (Dilaudid) Patient History Medical History Type 2 diabetes mellitus Per records Patient denies Traumatic open wound of right lower leg with delayed healing RLE "hematoma", healing Following w/[facility] Osteopenia Chronic back pain Atherosclerosis of aorta History of COVID-19 (2022) Symptoms resolved Mitral regurgitation Follows with [facility] Chronic venous insufficiency Arthritis of right shoulder region Lumbar spinal stenosis Osteoarthritis of left knee Anxiety Atrial fibrillation Taking Xarelto Previously on beta yocasta, d/c'd due to nausea Follows with [facility] History of kidney stones Passed on own Cervicalgia Hypothyroidism Cancer Right breast cancer (2006) s/p lumpectomy/tamoxifen Hyperlipidemia History of hypotension Chronic Surgical History History of left knee replacement H/O wisdom tooth extraction History of Mohs micrographic surgery for skin cancer Hx of surgical procedure Platelets injected into left ankle Hx of lumpectomy Right History of open reduction and internal fixation (ORIF) procedure Right ankle History of arthroscopy Left knee History of colonoscopy History of tonsillectomy Family History Mother Family history of malignant neoplasm of breast Diabetes Brother Diabetes Depression Father Cardiac disorder Myocardial infarction Grandmother Colon cancer Social History Smoking Status: Never smoker Second Hand Exposure: No; Do You Dip or Chew Tobacco: No; Tobacco Cessation Education Requested by Patient: No Hx Alcohol Use: Yes Alcohol type: wine Alcohol Intake Frequency: 2-3 x/Week Hx Substance Use: No Preferred Language: Chinese Communication Ability: Effective Visual Impairment: Limited Hearing Ability: Normal Flight Engineer Manager Required: No Beliefs That Will Affect Care: None marital status: Current Living Situation: Alone current occupational status: retired Other Information That Helps Us Care for You: No Feels Safe at Home: Yes Safety Concerns: Feels Safe At This Time Childhood Exposure to Second-Hand Smoke: Yes Diet: regular caffeine: Yes (occasionally) Dental Care, Regularly: Yes Physical Activity Frequency: Daily Seatbelt Use: always Sunscreen Use: Yes Assistive Devices: Glasses Physical Exam Physical Exam: General: NAD, VS: BP 106/84; P88; R16; T36.4C Resp: normal respiratory effort, lungs clear to auscultation CV: irregularly irregular. mild murmur. Extremities: no edema Neuro: A&O x3 Skin: intact, no lesions noted Results & Data Results & Data Vital Signs (Past 12 Hours) Vital Signs Temp Pulse Pulse Resp BP Pulse Ox O2 Del Method 04/16/25 14:15 90 20 114/93 95 Room Air 04/16/25 14:00 90 17 136/90 94 Room Air 04/16/25 13:45 88 16 123/83 96 Room Air 04/16/25 13:35 89 21 128/81 97 Room Air 04/16/25 13:25 36.4 C L 86 13 131/71 98 Room Air 04/16/25 13:15 85 18 119/93 100 Oxymask 04/16/25 13:05 89 17 125/84 100 Oxymask 04/16/25 12:57 36.2 C L 92 H 20 120/81 96 Oxymask 04/16/25 08:41 36.6 C 81 18 151/78 H 97 Room Air O2 Flow Rate 04/16/25 14:15 04/16/25 14:00 04/16/25 13:45 04/16/25 13:35 04/16/25 13:25 04/16/25 13:15 2 04/16/25 13:05 4 04/16/25 12:57 9 04/16/25 08:41 PG Care Time/CCT Total # of Minutes Spent Total Time Spent with Patient: Total time spent is greater than 50% in coordination of care (as documented) at patient's floor/unit and/or counseling patient: Coding Level of Care Code 30725 IN/OBS CONSULT LVL 3,45M Diagnoses Primary osteoarthritis of right knee M17.11 Osteoarthritis type: primary Atrial fibrillation, unspecified type I48.91 Atrial fibrillation type: unspecified Acquired hypothyroidism E03.9 Hypothyroidism type: acquired Mixed hyperlipidemia E78.2 Hyperlipidemia type: mixed hyperlipidemia Type 2 diabetes mellitus E11.9 (1) Osteoarthritis of right knee Osteoarthritis type: primary Qualified Code(s): M17.11 - Unilateral primary osteoarthritis, right knee (2) Atrial fibrillation Atrial fibrillation type: unspecified Qualified Code(s): I48.91 - Unspecified atrial fibrillation (3) Hypothyroid Hypothyroidism type: acquired Qualified Code(s): E03.9 - Hypothyroidism, unspecified (4) Hyperlipemia Hyperlipidemia type: mixed hyperlipidemia Qualified Code(s): E78.2 - Mixed hyperlipidemia
[2025-04-16] MEDS ORDERED: ALUMINUM/MAGNESIUM SUSP 30 ML UDC PO PRN (15:06)
[2025-04-16] MEDS ORDERED: NALOXONE HCL 0.4 MG/1 ML VIAL/CARP IV PRN (15:06)
[2025-04-16] MEDS ORDERED: METOCLOPRAMIDE HCL INJ 5 MG/ML 2 ML VIAL IV PRN (15:06)
[2025-04-16] MEDS ORDERED: MAGNESIUM HYDROXIDE SUSP 30 ML UDC PO PRN (15:06)
[2025-04-16] MEDS ORDERED: diphenhydrAMINE Capsule 25 MG CAP PO PRN (15:06)
[2025-04-16] MEDS ORDERED: HYDROmorphone INJ 0.5 MG/0.5 ML SYR IV PRN (15:06)
[2025-04-16] MEDS: SODIUM CHLORIDE 0.9% 1,000 ML IV SCH (15:48)
[2025-04-16] MEDS: TRANEXAMIC ACID / 0.7% NACL 1,000 MG/100 ML BAG IV SCH (18:18)
[2025-04-16] MEDS: ATORVASTATIN 40 MG TAB PO SCH (20:25)
[2025-04-16] MEDS: DOCUSATE SODIUM 100 MG CAP PO SCH (20:25)
[2025-04-16] MEDS: EZETIMIBE 10 MG TAB PO SCH (20:26)
[2025-04-16] MEDS: ESCITALOPRAM OXALATE 10 MG TAB PO SCH (20:26)
[2025-04-16] MEDS: KETOROLAC TROMETHAMINE 15 MG/ML VIAL IV PRN (20:27)
[2025-04-16] MEDS: SENNA 8.6 MG TAB PO SCH (20:27)
[2025-04-16] MEDS: ERYTHROMYCIN OP OINT 5 MG/GM 3.5 GM TUBE OP SCH (21:48)
[2025-04-17] MEDS: LEVOTHYROXINE SODIUM 25 MCG TABLET PO SCH (05:45)
[2025-04-17 06:11] LABS: Hematocrit (blood only) 34.4 % (37.0-47.0); Hemoglobin 11.8 g/dl (12.0-16.0); Mean Corpuscular Hemoglobin 31.7 pg (25.0-34.0); Mean Corpuscular Volume 92.5 fL (80.0-100.0); Platelet Count 155 K/uL (130-400); RDW Standard Deviation 44.6 fL (36.4-46.3); Red Blood Count 3.72 M/uL (4.20-5.40); White Blood Count 14.08 K/ul (4.8-10.8)
[2025-04-17 06:29] LABS: Anion Gap 3.0 (3-11); Blood Urea Nitrogen 26.0 mg/dl (6-23); Calcium 8.9 mg/dl (8.6-10.3); Carbon Dioxide 29.0 mmol/L (21-32); Chloride 106.0 mmol/L (98-107); Creatinine Clr Calc Pharmacy 53.7 ml/min; Glucose 140.0 mg/dl (70-99(Fasting)); Potassium 4.8 mmol/L (3.5-5.1); Sodium 138.0 mmol/L (136-145)
[2025-04-17 06:44] LABS: Thyroid Stimulating Hormone 0.713 uIu/ml (0.300-4.500)
--- NOTE | 2025-04-17 07:45 | Orthopedic Progress Note ---
Date of Service April 17, 2025 Assessment & Plan (1) Osteoarthritis of right knee: Plan: Postop day 1 right knee replacement. Patient doing well. Minimal drainage from Hemovac which can be discontinued today. Patient has Silverlon dressing and wound care per protocol. Patient doing outpatient physical therapy at [facility]. Follow-up in 2 weeks for wound check. Dilaudid for pain. Start anticoagulant 24-hour postop. End-stage osteoarthritis right knee presents for right knee replacement. Patient presents for Ortiz & Nephew knee replacement with MRI generated PSI guide. (2) Chronic venous insufficiency of lower extremity: Admission and Anticipated Discharge Date Admission Date: April 16, 2025 Subjective Doing well no pain Review of Systems Review of Systems: Feels well no chest pain shortness of breath or medical issues. Physical Exam Musculoskeletal: Dressing was reinforced around drain exit and currently dry. Independent straight leg raise. Distal circulation sensorimotor exam intact. Results & Data Vital Signs (Past 12 Hours) Vital Signs Temp Pulse Resp BP Pulse Ox O2 Del Method 04/17/25 02:00 36.5 C 80 14 135/81 95 Room Air 04/16/25 22:00 36.7 C 81 16 129/71 96 Room Air Diagnostic Findings Well aligned right total knee replacement (1) Osteoarthritis of right knee Osteoarthritis type: primary Qualified Code(s): M17.11 - Unilateral primary osteoarthritis, right knee
--- NOTE | 2025-04-17 07:57 | Hospitalist Progress Note ---
Date of Service April 17, 2025 Assessment & Plan (1) Osteoarthritis of right knee: (2) Atrial fibrillation: (3) Hypothyroid: (4) Hyperlipemia: (5) Type 2 diabetes mellitus: Plan This is an 79 year old female with past medical history of A fib, hyperlipidemia, breast cancer who presented to the hospital for an elective right total knee repair with Dr. Tipton on 04/16/2025. #OA of right knee s/p right total knee repair w/ Dr. Tipton 04/16 DVT prophylaxis, PT/OT, pain management, and Diet per primary team. Patient does report eye irritation in her left eye following surgery. - trial erythromycin ointment to see if this helps improve symptoms. Did not appear red Anticipate dc home today 04/17. #A fib Per pt was in A fib prior to surgery this AM - asymptomatic resume Xarelto when able. Hemoglobin has been steady, slight drop to below 12 but not to the point where patient requires blood transfusion. Not on any rate controlling medications at this time. #Hypothyroidism Most recent TSH 06/2024 was WNL - recheck in AM Continue Levothyroxine #HLD - continue statin + zetia #Anxiety/depression - continue Lexapro #T2 DM Currently diet controlled. A1c 03/2025: 6.3% Continue to follow up w/ PCP for continued monitoring. DVT prophylaxis: per primary team, resume Xarelto when able. Code: full Admission and Anticipated Discharge Date Admission Date: April 16, 2025 Subjective Patient reports feeling well. She has no new complaints. SHe states she would like to be discharged. Physical Exam Constitutional: WD/WN, vitals as above Neck: trachea midline, no thyromegaly Respiratory: normal respiratory effort Results & Data Results & Data Vital Signs (Past 12 Hours) Vital Signs Temp Pulse Resp BP Pulse Ox O2 Del Method 04/17/25 02:00 36.5 C 80 14 135/81 95 Room Air 04/16/25 22:00 36.7 C 81 16 129/71 96 Room Air PG Care Time/CCT Total # of Minutes Spent Total Time Spent with Patient: Total time spent is greater than 50% in coordination of care (as documented) at patient's floor/unit and/or counseling patient: Coding Level of Care Code 06190 SUB INP/OBS CARE 2/35MIN Diagnoses Primary osteoarthritis of right knee M17.11 Osteoarthritis type: primary Atrial fibrillation, unspecified type I48.91 Atrial fibrillation type: unspecified Acquired hypothyroidism E03.9 Hypothyroidism type: acquired Mixed hyperlipidemia E78.2 Hyperlipidemia type: mixed hyperlipidemia Type 2 diabetes mellitus E11.9 (1) Osteoarthritis of right knee Osteoarthritis type: primary Qualified Code(s): M17.11 - Unilateral primary osteoarthritis, right knee (2) Atrial fibrillation Atrial fibrillation type: unspecified Qualified Code(s): I48.91 - Unspecified atrial fibrillation (3) Hypothyroid Hypothyroidism type: acquired Qualified Code(s): E03.9 - Hypothyroidism, unspecified (4) Hyperlipemia Hyperlipidemia type: mixed hyperlipidemia Qualified Code(s): E78.2 - Mixed hyperlipidemia
[2025-04-17 08:04] VITALS: PULSE 91; RESP 18
[2025-04-17] MEDS: dexAMETHasone 10 MG in SYRINGE 0 ML IV SCH (08:41)
[2025-04-17] MEDS: CHOLECALCIFEROL 25 MCG (1000 UNITS) TAB PO SCH (08:41)
[2025-04-17] MEDS: ALENDRONATE SODIUM 70 MG TAB PO SCH (08:42)
[2025-04-17] MEDS: MULTIVITAMIN TAB PO SCH (08:42)
[2025-04-17] MEDS ORDERED: ZINC SULFATE PO SCH (09:00)
[2025-04-17] MEDS ORDERED: NON-FORMULARY MEDICATION (Mv-Mn-Lutein-Zeax-Bilber-Hb277 [Macular Health Formula] 5-1-7.5 PO SCH (09:00)
[2025-04-17] MEDS ORDERED: ASCORBIC ACID PO SCH (09:00)
[2025-04-17 11:31] VITALS: BP 144/75; TEMP 97.9; O2SAT 98
[2025-04-17] MEDS ORDERED: RIVAROXABAN 20 MG TAB PO SCH (16:30)
== END 2025-04-17 12:00 | disposition home or self-care (01) ==
LOC: ASU 08:12 → 3E 08:12